=== PATIENT | male | born 1960 | race Caucasian/White ===

== ENCOUNTER 2020-09-28 13:18 | Observation (INO) | payer OTHER, SELFPAY ==
[2020-09-28] VITALS (9 sets, daily range): BP systolic 83–149; BP diastolic 61–78; PULSE 73–107; RESP 14–24; TEMP 35.8–36.9; O2SAT 94–99; BMI 35.0
--- NOTE | ~2020-09-28 | CT_ITS ---
EXAMINATION: CT abdomen pelvis wo con DATE: 09/28/2020 15:10 INDICATION: Left lower quadrant pain TECHNIQUE: Computed tomography (CT) of the abdomen and pelvis was performed without intravenous contr ast. The dose-length product (DLP) was 1316.32 mGy-cm. Automated exposure control and iterative recon struction technique were employed. COMPARISON: None FINDINGS: There is a calcified granuloma of the left lower lobe. The heart size is normal. The liver, spleen, pancreas, gallbladder, and adrenal glands are normal. The kidneys are unremarkable. No patho logically enlarged abdominal or pelvic lymph nodes are identified. There is no free intraperitoneal g as or evidence of bowel obstruction. There is moderate lumbar spondylosis. IMPRESSION: 1. No CT correlate for the patient's symptoms. Reviewed, dictated and finalized at location A.
--- NOTE | ~2020-09-28 | US_ITS ---
EXAMINATION: US renal BI DATE: 09/29/2020 13:22 INDICATION: Acute kidney injury. TECHNIQUE: Multiple ultrasound grayscale images of the kidneys were obtained. COMPARISON: None. FINDINGS: The right kidney measures 10.7 x 6.2 x 5.7 cm. The left kidney measures 12.3 x 6.0 x 4.6 cm. The kidn eys demonstrate normal parenchymal echogenicity. There is no hydronephrosis. The bladder is normal. T here is diffuse hepatic steatosis. IMPRESSION: 1. Normal kidneys. No hydronephrosis. 2. Diffuse hepatic steatosis. Reviewed, dictated and finalized at location B.
--- NOTE | ~2020-09-28 | XR_ITS ---
EXAMINATION: XR chest 1V DATE: 09/28/2020 14:10 INDICATION: Lightheadedness. Dizziness. TECHNIQUE: frontal view of the chest was obtained. COMPARISON: None FINDINGS: The lungs are clear with no focal airspace opacities, pulmonary edema, pleural effusion or pneumothor ax. The cardiomediastinal silhouette is normal. Visualized bones and soft tissues are unremarkable. IMPRESSION: 1. No acute cardiopulmonary disease. Reviewed, dictated and finalized at location A.
--- NOTE | ~2020-09-28 | CT_ITS ---
EXAMINATION: CT brain wo con DATE: 09/28/2020 14:01 INDICATION: Lightheadedness TECHNIQUE: Computed tomography (CT) of the head was performed without intravenous contrast. Sagittal and coronal reconstructions were performed. The mA was adjusted according to patient size. Iterative reconstruction technique was employed. The dose-length product was 908.00 mGy-cm. COMPARISON: None FINDINGS: No acute intracranial hemorrhage, acute infarction or abnormal extra axial fluid collection. Ventricl es are normal and symmetric. No mass/mass effect. The orbits, paranasal sinuses and mastoid air cells are normal. IMPRESSION: 1. Normal brain. No acute intracranial process. Reviewed, dictated and finalized at location A.
--- NOTE | 2020-09-28 13:28 | ECG_ITS ---
Measurements Intervals [place] Rate: 89 P: 48 WI: 147 QRS: 22 QRSD: 101 T: 36 QT: 355 QTc: 433 Interpretive Statements SINUS RHYTHM POSSIBLE LEFT ATRIAL ENLARGEMENT BORDERLINE ECG Electronically Signed On 09-28-2020 14:23:37 CDT by Mahamed Briscoe D.O.
[2020-09-28 13:59] LABS: Basophils Percent Auto 0.2 % (0.2-1.2); Eosinophils Absolute Auto 0.1 K/mm3 (0-0.3); Eosinophils Percent Auto 0.5 % (0-4.4); Hematocrit 44.6 % (42.0-52.0); Hemoglobin 15.1 g/dL (14.0-18.0); Immature Granulocyte Absolute 0.05 K/mm3 (0.00-0.031); Immature Granulocyte Percent A 0.5 % (0-0.5); Lymphocytes Absolute Auto 2.24 K/mm3 (0.9-3.2); Lymphocytes Percent Auto 23.3 % (18.3-44.2); Mean Corpuscular HGB Conc 33.9 g/dl (32-36); Mean Corpuscular Hemoglobin 28.4 pg (26-34); Mean Corpuscular Volume 83.8 fl (80-100); Mean Platelet Volume 10.4 fl (7.4-10.4); Monocytes Absolute Auto 0.9 K/mm3 (0.1-0.6); Monocytes Percent Auto 8.8 % (2.6-8.5); Neutrophils Absolute Auto 6.4 K/mm3 (1.3-6.7); Neutrophils Percent Auto 66.7 % (45.5-73.1); Platelet Count Result 254 k/mm3 (150-375); Red Blood Count 5.32 M/mm3 (4.6-6.20); Red Cell Distribution Width 12.9 % (11.5-14.5); White Blood Count 9.6 K/mm3 (4.5-10.0)
[2020-09-28] MEDS: SODIUM CHLORIDE 0.9% IV 2,000 ML 999 ML (14:05)
[2020-09-28 14:07] LABS: Anion Gap 9 mmol/L (8-16); Blood Urea Nitrogen 27 mg/dL (9-20); Calcium 9.4 mg/dL (8.4-10.2); Carbon Dioxide 29 mmol/L (22-30); Chloride 98 mmol/L (98-107); Estimated CRCL calculation 46 ml/min; Estimated Glomerular Filt Rate 33; Glucose 181 mg/dL (75-110); Potassium 3.3 mmol/L (3.4-5.0); Sodium 136 mmol/L (137-145)
--- NOTE | 2020-09-28 14:14 | ED.DIZZY ---
HPI - Dizziness General Chief Complaint: Dizziness Stated Complaint: dizziness/multiple complaints Time Seen by Provider: 09/28/20 13:33 Source: patient and RN notes reviewed Mode of arrival: ambulatory Limitations: no limitations History of Present Illness HPI Narrative: Patient is 60 years old white male presents with intermittent lightheadedness for the last 7 days. Patient reports get worse if he stands up, or do any activity. Patient denies any fever, chills, nausea, vomiting, chest pain, shortness of breath, abdominal pain or back pain. Patient also denies any headache or vision abnormality. Patient was seen by his family physician 3 weeks ago and started on a new medication to lose weight and to control cholesterol. Patient did remember the name. Patient been on blood pressure medication for few years. Currently patient feeling okay as long as laying down in bed. Patient does not smoke and drinks occasionally. Denies any drug use or abuse. Related Data Home Medications Medication Instructions Recorded Confirmed atorvastatin 09/28/20 omeprazole 09/28/20 semaglutide [Ozempic] mg SUBCUT 09/28/20 09/28/20 Allergies Allergy/AdvReac Type Severity Reaction Status Date / Time No Known Allergies Allergy Verified 09/28/20 15:31 Review of Systems Review of Systems: Narrative: CONSTITUTIONAL: Denies fever, chills, or sweats. EYES: Denies visual changes, redness, or discharge. ENT: Denies rhinorrhea, congestion, sore throat, or otalgia. CARDIOVASCULAR: Denies chest pain, palpitations, or edema. RESPIRATORY: Denies cough or dyspnea. GASTROINTESTINAL: Denies abdominal pain, nausea, vomiting, or diarrhea. GENITOURINARY: Denies dysuria or hematuria. SKIN: Denies rash or itching. MUSCULOSKELETAL: Denies back pain, joint pain, or myalgia. NEUROLOGIC: Denies headache, numbness, or weakness. PSYCHIATRIC: Denies anxiety or depression. Exam Narrative: Exam Narrative: General appearance: Well-developed, well-nourished Skin: Normal color Head: Normocephalic, nontraumatic Eyes: Clear conjunctiva ENT: Oropharynx normal, ears normal, nose normal Neck: Supple, nontender Chest and respiratory: Airway patent, no respiratory distress, no accessory muscle use Heart: Regular rate/rhythm Abdomen: Soft, nontender, no organomegaly, quiet bowel sounds Vascular: Normal peripheral pulses, normal capillary refill. Musculoskeletal: Normal range of motion, nontender back Neurologic: Alert and oriented ?3, PHARMACY MANAGER is normal as tested, no gross motor deficit Course Course Emergency Course: Improving Reevaluation(s) Reevaluation #1: Currently patient is asymptomatic, laying down in bed comfortable, telling me that he had normal blood work-up 2 weeks ago at his family physician office, was not told that he have any kidney trouble before. Patient is telling me that he have intermittent left lower quadrant sharp stabbing pain for weeks. CT abdomen pelvis without contrast ordered. Further plan to follow. Date: 09/28/20 Time: 15:23 Vital Signs Vital signs: Vital Signs Temperature 36.7 C 09/28/20 13:25 Pulse Rate 92 09/28/20 13:25 Respiratory Rate 20 09/28/20 13:25 Blood Pressure 106/62 09/28/20 13:25 Pulse Oximetry 97 09/28/20 13:25 Temperature 36.9 C 09/28/20 15:35 Pulse Rate 73 09/28/20 15:35 Respiratory Rate 17 09/28/20 15:35 Blood Pressure 107/68 09/28/20 15:35 Pulse Oximetry 98 09/28/20 15:35 MDM - Dizziness MDM Narrative Medical decision making narrative: Patient presents with lightheadedness. Orthostatic hypotension is a concern. Labs, CT head, chest x-ray, orthostatic blood pressure ordered. Further plan to follow. Pl
[2020-09-28] MEDS: SODIUM CHLORIDE 0.9% IV 1,000 ML 999 ML IV CONT (15:30)
[2020-09-28 16:02] LABS: Add Urine Microscopic? YES; Appearance Urine Cloudy (Clear); Bacteria Urine 4+ /hpf; Bilirubin Urine Negative (Negative); Blood Urine Negative (Negative); Color Urine Amber (Yellow); Glucose Urine UA Negative (Negative); Ketones Urine Negative (Negative); Leukocyte Esterase Ur 2+ LEU/UL (Negative); Mucus Urine Few /lpf; Nitrate Urine Negative (Negative); Protein Urine 2+ mg/dL (Negative); Specific Grav Ur 1.018 (1.001-1.035); WBC Urine >75 /hpf
--- NOTE | 2020-09-28 16:10 | PC.NURSE ---
Rakesh in lab notified of add on for urine tests and he will assess what can be run with sample that is already in the lab.
[2020-09-28 16:31] LABS: Barbiturate Screen Urine Negative (Negative); Benzodiazepines Screen Urine Negative (Negative)
[2020-09-28 16:32] LABS: Amphetamine Screen Urine Negative (Negative); Cannabinoid Screen Urine Negative (Negative); Cocaine Screen Urine Positive (Negative); Opiate Screen Urine Negative (Negative); Phencyclidine Screen Urine Negative (Negative)
[2020-09-28 16:34] LABS: Methadone Screen Urine Negative (Negative)
[2020-09-28 16:44] LABS: Total Protein Urine Random 49 mg/dL
[2020-09-28 16:45] LABS: Sodium Urine Random 54 meq/L
[2020-09-28 16:46] LABS: Eosinophil Urine None Seen % (None Seen)
[2020-09-28 16:57] LABS: Creatinine Urine 366.5 mg/dL; Ur Ttl Prot Creatinine Ratio 0.13 mg/mg (0-0.20)
--- NOTE | 2020-09-28 17:41 | ADMGEN ---
This patient, Los Sethi, was admitted to Medical Room 340-01. Patient/family oriented to hospital policies and general routines including ID bracelet, bed and alarms, visiting hours, pain management, procedures, bathroom and other care routines, personal items, smoking policy, room service/diet, and visiting hours. Information on how to activate the Rapid Response Team has been discussed. Patient/Family are encouraged to report perceived risks to care and to ask questions if they do not understand what they are told or what they should do.
[2020-09-28] MEDS: SODIUM CHLORIDE 0.9% IV 1,000 ML 150 ML IV CONT (18:13)
[2020-09-28 18:22] LABS: Alanine Aminotransferase 38 U/L (4-50); Albumin Level 4.3 g/dL (3.5-5.1); Alkaline Phosphatase 65 U/L (38-126); Aspartate Amino Transferase 39 U/L (17-59); Bilirubin,Total 1.4 mg/dL (0.2-1.3)
[2020-09-28 18:34] LABS: Troponin I < 0.012 ng/mL (0.000-0.034)
--- NOTE | 2020-09-28 20:25 | PM.IMHP ---
H&P: HPI History of Present Illness Date/Time: 09/28/20 20:25 Chief Complaint: Dizziness Narrative: This is a 60-year-old male with past medical history significant for hypertension, metabolic syndrome, hypertension. Patient was recently started on Ozempic 1 mg subcu weekly, patient is on a combination of losartan and hydrochlorothiazide for his hypertension. 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 Patient decided to come to the emergency room. Patient states that he just had extensive cardiac workup done at outside hospital in [place] including a treadmill stress test states that everything came back okay. Patient states that he has never had any kidney issues in his lab work. Patient denies any syncope or near syncope no chest pain no shortness of breath no cough no sputum production no diarrhea no nausea no vomiting. Preliminary workup was significant for a creatinine of 2.1. A urine analysis was significant for WBC more than 75. Review of Systems Review of Systems: Narrative: Patient presented to the emergency room due to dizziness not feeling well overall fevers chills poor appetite Constitutional: Constitutional: Reports chills, Reports fatigue, Reports fever(s) and Reports poor appetite Eyes: Eyes: Denies change in vision ENT: Denies nasal congestion, Denies nasal discharge and Denies nasal obstruction Cardiovascular: Cardiovascular: Denies radiating jaw, neck or arm pain Respiratory: Respiratory: Denies chest congestion, Denies cough, Denies dyspnea and Denies wheezing Gastrointestinal: Gastrointestinal: Denies abdominal pain, Denies nausea and Denies vomiting Genitourinary: Genitourinary: Denies dysuria and Denies flank pain Musculoskeletal: Musculoskeletal: Denies arthralgias and Denies joint swelling Integumentary/Breasts: Skin/Breast: Denies rash Neurologic: Reports dizziness, Denies focal weakness and Denies Sensory deficit (Neuro) Endocrine: Endocrine: Denies heat intolerance, Denies polyphagia, Denies polyuria and Denies palpitations Hematologic/Lymphatic: Hematologic/Lymphatic: Denies no additional hematologic/lymphatic complaints Allergic/Immunologic: Allergic/Immunologic: Denies no additional allergic/immunologic complaints [facility] Family History Family History (Updated 09/28/20 @ 17:49 by Sujatha Romero RN) Father Acute myocardial infarction Social History Social History Smoking status: Never smoker Alcohol intake: current Drinks per week: 7 Substance use: never Substance use type: does not use Gender identity (if verbalized by the patient): Male Spiritual care concerns: No Meds Home Medications and Allergies Home Medications Medication Instructions Recorded Confirmed Type aspirin 81 mg PO DAILY 09/28/20 09/28/20 History atorvastatin 80 mg PO DAILY 09/28/20 09/28/20 History losartan-hydrochlorothiazide 1 tablet PO DAILY 09/28/20 09/28/20 History omeprazole 40 mg PO DAILY 09/28/20 09/28/20 History semaglutide [Ozempic] 1 mg SUBCUT WEEKLY 09/28/20 09/28/20 History Allergies Allergy/AdvReac Type Severity Reaction Status Date / Time No Known Allergies Allergy Verified 09/28/20 18:02 Vital Signs Vital Signs - 24 hr 09/28/20 13:25 09/28/20 13:36 09/28/20 14:01 Temperature 98.0 F 98.5 F Pulse Rate 92 91 93 Respiratory Rate 20 22 H Blood Pressure 106/62 105/65 87/61 L Pulse Oximetry 97 94 09/28/20 14:02 09/28/20 14:15 09/28/20 15:35 Temperature 98.0 F 98.4 F Pulse Rate 107 H 91 73 Respiratory Rate 19 17 Blood Pressure 83/63 L 101/62 107
[2020-09-29] MEDS: SODIUM CHLORIDE 0.9% IV 1,000 ML 150 ML IV CONT ×2 (01:15→08:04)
[2020-09-29 01:25] LABS: Glucose Point of Care 128 mg/dl (65-105)
[2020-09-29 02:11] VITALS: PULSE 73; RESP 16; O2SAT 96
[2020-09-29 05:53] VITALS: BP 139/86; PULSE 69; RESP 16; TEMP 35.9; O2SAT 98
[2020-09-29 06:03] LABS: Albumin Level 3.5 g/dL (3.5-5.1); Anion Gap 4 mmol/L (8-16); Blood Urea Nitrogen 23 mg/dL (9-20); Calcium 8.3 mg/dL (8.4-10.2); Carbon Dioxide 29 mmol/L (22-30); Chloride 106 mmol/L (98-107); Estimated CRCL calculation 86 ml/min; Estimated Glomerular Filt Rate > 60; Glucose 116 mg/dL (75-110); Phosphorus 3.3 mg/dL (2.5-4.5); Potassium 3.8 mmol/L (3.4-5.0); Sodium 139 mmol/L (137-145)
[2020-09-29 07:47] LABS: Glucose Point of Care 132 mg/dl (65-105)
[2020-09-29] MEDS: ASPIRIN 81 MG ENTERIC TABLET PO (08:05)
[2020-09-29] MEDS: PANTOPRAZOLE 40 MG TABLET PO (10:01)
[2020-09-29 10:08] VITALS: BP 141/88; BP 171/86; PULSE 66; PULSE 70
[2020-09-29 10:09] VITALS: BP 142/85; PULSE 76
[2020-09-29] MEDS: ATORVASTATIN 20 MG TABLET PO (10:42)
[2020-09-29 11:40] LABS: Glucose Point of Care 144 mg/dl (65-105)
--- NOTE | 2020-09-29 14:35 | PM.DS ---
DS: Admitting Diagnosis Admitting Diagnosis Admitting Diagnosis: Acute kidney insufficiency DS: Discharge Diagnosis Discharge Diagnosis (1) Acute kidney insufficiency: Code(s): N28.9 - Disorder of kidney and ureter, unspecified Status: Resolved Assessment and Plan: Date of Admission 09/28/20 Date of Discharge 09/29/20 Mr. Sethi is a pleasant 60yo M with history of hypertension and metabolic syndrome who presented to the ED for evaluation of dizziness. He was hypotensive on arrival to the ER with blood pressures as low as 83/63. He was noted to have orthostatic hypotension. Routine labs demonstrated an elevated creatinine of 2.1 on arrival that improved to 1.1 with IV hydration. He describes he was recently started on Ozempic around 3 weeks ago. His losartan-hctz was held. Discontinue HCTZ at discharge to avoid hypotension and dehydration. Urinalysis is abnormal and he has been started on antibiotics for possible urinary tract infection with urine culture pending; will follow these results to final and change antibiotic if necessary. Patient is feeling improved and has no dizziness today. He is hemodynamically stable for discharge today and is comfortable with his discharge plan. He is encouraged to follow-up with his primary care provider within 1-2 weeks. (2) UTI (urinary tract infection): Qualifiers: Urinary tract infection type: acute cystitis Hematuria presence: without hematuria Qualified Code(s): N30.00 - Acute cystitis without hematuria Code(s): N39.0 - Urinary tract infection, site not specified Status: Suspected Assessment and Plan: Abnormal urinalysis, he was treated of IV ceftriaxone. Discharged with oral cefdinir with urine culture pending at discharge, will follow. (3) Orthostatic hypotension: Code(s): I95.1 - Orthostatic hypotension Status: Resolved Assessment and Plan: Resolved. Suspect related to dehydration. He admits he has not been drinking enough fluids lately. Encouraged oral intake and educated him on taking his time changing positions from sitting to standing. Continue losartan, discontinue HCTZ. Follow-up with PCP. (4) Metabolic syndrome: Code(s): E88.81 - Metabolic syndrome Status: Chronic Assessment and Plan: Recently started on Ozempic. Follow-up with PCP. DS: Summary Hospital Course Hospital Course: See above. Time Spent with Patient Time attestation: Total time spent providing and/or coordinating discharge services: 35 minutes Exam Narrative: Exam Narrative: General: Well-appearing male resting comfortably supine in bed in no acute distress. HEENT: Normocephalic, EOMI, oral mucosa moist. Cardiovascular: Rate and rhythm are regular. Respiratory: Lungs clear to auscultation bilaterally. Respirations even and non-labored. Abdomen: Soft, non-tender, non-distended, bowel sounds present. Extremities: Peripheral pulses intact. No edema or pain to palpation. Neuro: No focal neurological deficits. Speech is clear. DS: Data Data Completed and Pending Labs on day of discharge: Last Vital Signs Temp 96.7 F L 09/29/20 05:53 Pulse 76 09/29/20 10:09 Resp 16 09/29/20 05:53 BP 142/85 H 09/29/20 10:09 Pulse Ox 98 09/29/20 05:[address] 09/28/20 14:08 IMPRESSION: 1. Normal brain. No acute intracranial process. Chest X-Ray 09/28/20 14:23 IMPRESSION: 1. No acute cardiopulmonary disease. Abdomen/Pelvis CT 09/28/20 15:34 IMPRESSION: 1. No CT correlate for the patient's symptoms. Renal Ultrasound 09/29/20 13:47 IMPRESSION: 1. Normal kidneys. No hydronephrosis. 2. Diffuse hepatic steatosis. Laboratory Tests 09/28/20 13:50 09/29/20 05:34 Discharge Plan Discharge Attending fabian
[2020-09-29 15:00] VITALS: BP 142/98; PULSE 63; RESP 16; TEMP 36.2; O2SAT 99
[2020-09-29 16:36] LABS: Glucose Point of Care 124 mg/dl (65-105)
[2020-09-30 21:14] LABS: Myoglobin, Urine <27 mcg/L (<28)
[2020-10-04 19:36] LABS: Chloride Rand Ur 57 mmol/L (32-290); Chloride/Creatinine Rand Ur 22 (23-275); Creatinine Random Urine 260 mg/dL (20-320)
== END 2020-09-29 16:56 | disposition home or self-care (01) ==
LOC: ANHED 14:52 → ANH3MED 15:55
PROVIDERS: Internal Medicine Nephrology; Admitting Provider Family Medicine; Emergency Provider Emergency Medicine; PCP Internal Medicine; Visit Provider Physician Assistant
DX: N28.9 Disorder of kidney and ureter, unspecified (principal); N39.0 Urinary tract infection, site not specified; T50.995A Adverse effect of other drugs, medicaments and biological substances, initial encounter; E88.81 Metabolic syndrome and other insulin resistance; I95.1 Orthostatic hypotension; I10 Essential (primary) hypertension; E11.9 Type 2 diabetes mellitus without complications; Z79.82 Long term (current) use of aspirin; Z79.899 Other long term (current) drug therapy
CPT/HCPCS: 36415; 70450; 71045; 74176; 76775; 80048; 80069; 80076; 80307; 81001; 81050; 82436; 82570; 82948; 83874; 84156; 84300; 84443; 84484; 85025; 85999; 87077; 87086; 87088; 87186; 93005; 96360; 96361; 96365; 99285; A9270; G0378; J0696; J7030